=== PATIENT | male | born 1945 | race Two or more races ===

== ENCOUNTER → 2017-03-06 | Outpatient (REF) | payer MEDICARE | LOC: M SFHCCAPE 11:07 | PROVIDERS: ATTEND Physician Assistant | DX: R35.0 Frequency of micturition (principal) | CPT/HCPCS: 81001; 87086; G0463 ==

== ENCOUNTER → 2017-03-07 | Outpatient (REF) | payer MEDICARE ==
[2017-03-07 17:18] LABS: BASO # 0.1 10^3/uL (0.0-0.2); BASO % 0.6 % (0.0-1.0); EOS # 0.2 10^3/uL (0.0-0.50); IMMATURE GRANULOCYTE % 0.2 % (0-0); LYMPH # 2.1 10^3/uL (1.5-4.5); MEAN CORPUSCULAR HEMOGLOBIN 28.3 pg (27.0-33.0); MEAN CORPUSCULAR HGB CONC 31.6 g/dl (32.0-36.5); MEAN CORPUSCULAR VOLUME 89.6 fl (80.0-96.0); MONO # 0.7 10^3/uL (0.0-0.8); MONO % 8.2 % (0.0-5.0); NEUTROPHILS # 5.5 10^3/uL (1.8-7.7); PLATELET COUNT, AUTOMATED 181 10^3/uL (150-450); RED CELL DISTRIBUTION WIDTH 13.9 % (11.5-14.5); WHITE BLOOD COUNT 8.5 10^3/uL (4.0-10.0)
[2017-03-07 17:47] LABS: ALBUMIN 3.4 GM/DL (3.2-5.2); ALBUMIN/GLOBULIN RATIO 1.17 (1.00-1.93); ALKALINE PHOSPHATASE 210 U/L (45-117); ALT/SGPT 25 U/L (12-78); ANION GAP 9 MEQ/L (8-16); AST/SGOT 19 U/L (7-37); BILIRUBIN,TOTAL 0.4 MG/DL (0.2-1.0); BLOOD UREA NITROGEN 10 MG/DL (7-18); CALCIUM LEVEL 8.4 MG/DL (8.8-10.2); CARBON DIOXIDE LEVEL 28 MEQ/L (21-32); CHLORIDE LEVEL 101 MEQ/L (98-107); CHOLESTEROL LEVEL 166 MG/DL (<200); CREATININE FOR GFR 0.77 MG/DL (0.70-1.30); FREE T4 0.98 NG/DL (0.76-1.46); GLOMERULAR FILTRATION RATE > 60.0 (>42); GLUCOSE, FASTING 89 MG/DL (83-110); POTASSIUM SERUM 4.2 MEQ/L (3.5-5.1); SODIUM LEVEL 138 MEQ/L (136-145); TOTAL PROTEIN 6.3 GM/DL (6.4-8.2); TRIGLYCERIDES LEVEL 129 MG/DL (<150)
== END ==
LOC: M SFHCCAPE 07:48
PROVIDERS: ATTEND Physician Assistant
DX: I10 Essential (primary) hypertension (principal); Z12.5 Encounter for screening for malignant neoplasm of prostate; J44.9 Chronic obstructive pulmonary disease, unspecified; R35.0 Frequency of micturition
CPT/HCPCS: 36415; 80053; 80061; 83036; 84439; 84443; 85025; G0103

== ENCOUNTER → 2017-04-11 | Outpatient (CLI) | payer MEDICARE ==
[~2017-04-11] MED LIST: CARV6.25 PO; ELIQ5TAB PO; TIOT18INH INH
--- NOTE | 2017-04-11 18:35 | REP ---
Prostate transrectal ultrasound: 04/11/2017. Clinical history: Elevated PSA. Findings: Ultrasound guidance provided for Dr. Regalado of the urology division to perform transrectal ultrasound-guided prostate biopsy. The gland appears enlarged measuring 8.6 x 6.5 x 9.8 cm giving a prostate volume of 285 ml. There are lobulated margins. A large heterogeneous gland is difficult to evaluate because of its overall size. Technologist documented 15 passes with an 18-gauge needle. Please see Dr. Regalado note for that procedure. Signed by Jaylon Bellamy MD 04/11/2017 08:40 P
== END ==
LOC: M SMT PRO 09:21
PROVIDERS: ATTEND Urology
DX: C61 Malignant neoplasm of prostate (principal)
CPT/HCPCS: 55700; 76872; 76942; G0416

== ENCOUNTER → 2017-04-20 | Outpatient (CLI) | payer MEDICARE ==
[2017-04-20 19:09] LABS: ANION GAP 5 MEQ/L (8-16); BLOOD UREA NITROGEN 13 MG/DL (7-18); CALCIUM LEVEL 8.6 MG/DL (8.8-10.2); CARBON DIOXIDE LEVEL 32 MEQ/L (21-32); CHLORIDE LEVEL 103 MEQ/L (98-107); CREATININE FOR GFR 0.75 MG/DL (0.70-1.30); GLOMERULAR FILTRATION RATE > 60.0 (>42); GLUCOSE, FASTING 83 MG/DL (83-110); SODIUM LEVEL 140 MEQ/L (136-145)
== END ==
LOC: M SMT 15:27
PROVIDERS: ATTEND Urology
DX: C61 Malignant neoplasm of prostate (principal)

== ENCOUNTER 2017-04-26 16:50 | Emergency (ER) | payer MEDICARE ==
[~2017-04-26] VITALS: Ht 180.3 cm; Wt 111.8 kg
[2017-04-26 16:50] VITALS: BP 155/81
[2017-04-26] MEDS ORDERED: CARV6.25 PO (16:57)
[2017-04-26] MEDS ORDERED: TIOT18INH INH (16:58)
[2017-04-26] MEDS ORDERED: ELIQ5TAB PO (17:49)
[2017-04-26] MEDS ORDERED: APIXABAN 5 MG TAB (ELIQUIS) PO ONE (18:00)
== END 2017-04-26 18:42 | disposition home or self-care (01) ==
LOC: M ED 16:50
DX: I82.411 Acute embolism and thrombosis of right femoral vein (principal); I10 Essential (primary) hypertension

== ENCOUNTER → 2017-04-26 | Outpatient (CLI) | payer MEDICARE ==
--- NOTE | 2017-04-27 06:46 | REP ---
RIGHT LOWER EXTREMITY DUPLEX DOPPLER VENOUS ULTRASOUND: Real-time compression and duplex Doppler interrogation of the right lower extremity deep venous system is performed. There is thrombus seen in the right common femoral vein extending into the central aspect of the greater saphenous vein rendering these vessels incompletely compressible. No thrombus is seen in the right superficial femoral or popliteal veins, with normal compressibility and internal flow. There are right inguinal lymph nodes present which all demonstrate markedly fatty kaity with short axis dimensions less than 1 cm. IMPRESSION: DVT seen in the right common femoral vein. Signed by Red Deluca MD 04/27/2017 08:34 P
== END ==
LOC: M RAD 15:16
PROVIDERS: ATTEND Physician Assistant
DX: M79.89 Other specified soft tissue disorders (principal); I82.411 Acute embolism and thrombosis of right femoral vein

== ENCOUNTER → 2017-04-28 | Outpatient (CLI) | payer MEDICARE ==
[~2017-04-28] MED LIST changes: +ISOVUE-370 76% 100ML VIAL (Q9967) As Ordered ONE
--- NOTE | 2017-04-28 11:51 | REP ---
CT STUDY OF THE PELVIS WITH IV BUT WITHOUT ORAL CONTRAST: HISTORY: Prostate carcinoma. CT CONTRAST DOSE: 100 mL of intravenous Isovue-370. CT FINDINGS: There are sclerotic bony changes, consistent with skeletal metastatic disease. Abnormal areas visualized include the left proximal femur and femoral head, the left posterosuperior acetabulum, the left posterior iliac bone, and the left side of the sacrum. The bottom of each kidney is visible at the top of the imaging field of view and there appear to be parapelvic cysts. The ureters do not appear to be dilated. There is a vena cava filter in place in the inferior vena cava. The infrarenal abdominal aorta is mildly ectatic measuring 2.6 cm in AP dimension. No aneurysm is seen. There is left colonic diverticulosis. On soft tissue window settings, the prostate is enlarged, and there is heterogeneously enhancing prostate mass effect extending through the right side of the prostatic capsule over a large area extending from approximately 10-o'clock position to approximately 4-o'clock position on the circumference of the prostate on axial CT images. There is involvement of the right and probably left seminal vesicle which are enlarged with this heterogeneous enhancing material. This heterogeneous enhancing material appears to extend into the anterior wall of the rectum and certainly extends to the right pelvic sidewall where there is fairly bulky right internal and external iliac lymphadenopathy. There are also left internal iliac and left external iliac enlarged lymph nodes. On the right, this confluent pelvic sidewall adenopathy measures up to 8 cm in craniocaudal span by 4.1 cm in medial to lateral dimension by up to 9 cm in craniocaudal span. On the left, the internal iliac node focus measures 3.2 cm in greatest diameter. The external iliac lymph node measures 2.0 cm. On the right, there is evidence of obstructive venous thrombosis in the right common femoral vein. There is a diffuse edema pattern in the proximal thigh soft tissues associated with this. Scattered normal-sized periaortic lymph nodes are seen. There is an aortocaval node visible at the top of the imaging field of view which measures 9 mm in short-axis dimension. This is not definitely enlarged. This node measures 21 mm in craniocaudal span. IMPRESSION: In this patient with known prostate malignancy, there is evidence of significant local regional spread outside the prostate capsule into bilateral seminal vesicles, the anterior wall of the rectum, the right pelvic sidewall with bilateral pelvic lymphadenopathy. There is also evidence of sclerotic bony metastatic disease. Recommend radionuclide bone scan be considered. CT scanning of the abdomen and pelvis may show more proximal adenopathy. There is evidence of deep venous thrombosis involving the right lower extremity associated with the iliac adenopathy. Signed by Vahid Lagunas MD 04/28/2017 01:37 P
--- NOTE | 2017-04-28 13:40 | REP ---
WHOLE BODY RADIONUCLIDE BONE SCAN: HISTORY: Prostate carcinoma diagnosed last week. TECHNIQUE: 21.6 mCi technetium 99m MDP is injected and standard whole body bone scan imaging is acquired. FINDINGS: There is unfortunately a multifocal pattern of metastatic disease involving the axial skeleton in multiple sites. The largest of these is the proximal femur on the left which shows abnormal increased uptake from the intertrochanteric segment through the femoral head. There is another large area of increased uptake in the posterior iliac bone on the left. Smaller foci are seen in the sacrum left medial acetabulum and right ischium. There is increased uptake in the T11 vertebral body as well as in T7. Multiple rib foci of increased uptake are seen most notably the right posterior 2nd rib. There is a metastatic focus in the distal clavicle on the left and in the coracoid process on the left. There is uptake in bilateral kidneys and the urinary bladder. Arthritic uptake is seen in the knees and in the small joints of the feet bilaterally. IMPRESSION: Fairly extensive skeletal metastatic disease most notably involving the left pelvis and left proximal femur . Signed by Vahid Lagunas MD 04/28/2017 03:49 P
== END ==
LOC: M RAD 09:25
PROVIDERS: ATTEND Urology
DX: C61 Malignant neoplasm of prostate (principal); R93.7 Abnormal findings on diagnostic imaging of other parts of musculoskeletal system
CPT/HCPCS: 72193; 78306; A9503; Q9967

== ENCOUNTER → 2017-05-29 | Outpatient (CLI) | payer MEDICARE ==
[2017-05-29 19:55] LABS: PROSTATIC SPECIFIC AG MONITOR 5.42 NG/ML (< 4.0)
== END ==
LOC: M SMT 14:20
DX: C61 Malignant neoplasm of prostate (principal)
CPT/HCPCS: 84153

== ENCOUNTER → 2017-07-19 | Outpatient (CLI) | payer MEDICARE ==
[2017-07-19 18:20] LABS: PROSTATIC SPECIFIC AG MONITOR 5.18 NG/ML (< 4.0)
== END ==
LOC: M SMT 13:39
DX: C61 Malignant neoplasm of prostate (principal)
CPT/HCPCS: 84153

== ENCOUNTER → 2017-10-04 | Outpatient (REF) | payer MEDICARE ==
[2017-10-05 14:35] LABS: TESTOSTERONE 13 NG/DL (241-827)
== END ==
LOC: M LAB REF 10:47
DX: C61 Malignant neoplasm of prostate (principal); C79.51 Secondary malignant neoplasm of bone
CPT/HCPCS: 84403

== ENCOUNTER → 2017-10-19 | Outpatient (REF) | payer MEDICARE ==
[2017-10-19 18:32] LABS: APPEARANCE, URINE CLEAR (CLEAR); BACTERIA, URINE AUTO NEGATIVE (NEGATIVE); BILIRUBIN, URINE AUTO NEGATIVE (NEGATIVE); BLOOD, URINE BLOOD NEGATIVE (NEGATIVE); COLOR, URINE YELLOW (YELLOW); GLUCOSE, URINE (UA) AUTO NEGATIVE (NEGATIVE); KETONE, URINE AUTO NEGATIVE (NEGATIVE); LEUKOCYTE ESTERASE, URINE AUTO NEGATIVE (NEGATIVE); NITRITE, URINE AUTO NEGATIVE (NEGATIVE); PROTEIN, URINE AUTO NEGATIVE (NEGATIVE); RBC, URINE AUTO 0 /HPF (0-3); SPECIFIC GRAVITY URINE AUTO 1.014 (1.002-1.035); SQUAMOUS EPITHELIAL CELL UR AU 0 /HPF (0-6); UROBILINOGEN, URINE AUTO 0.2 mg/dL (0.0-2.0); WBC, URINE AUTO 0 /HPF (0-3)
== END ==
LOC: M SMT 16:53
DX: R35.0 Frequency of micturition (principal)
CPT/HCPCS: 81001

== ENCOUNTER → 2017-10-26 | Outpatient (CLI) | payer MEDICARE ==
[~2017-10-26] MED LIST changes: -CARV6.25 PO; -ELIQ5TAB PO; +ISOVUE-370 76% 100ML VIAL (Q9967) As Ordered; -ISOVUE-370 76% 100ML VIAL (Q9967) As Ordered ONE; -TIOT18INH INH
== END ==
LOC: M RAD 10:33
DX: C61 Malignant neoplasm of prostate (principal); C79.51 Secondary malignant neoplasm of bone; K57.30 Diverticulosis of large intestine without perforation or abscess without bleeding; R91.8 Other nonspecific abnormal finding of lung field; C79.89 Secondary malignant neoplasm of other specified sites
CPT/HCPCS: Q9967

== ENCOUNTER → 2017-11-14 | Outpatient (REF) | payer MEDICARE ==
[2017-11-14 17:06] LABS: ALBUMIN 3.1 GM/DL (3.2-5.2); ALKALINE PHOSPHATASE 140 U/L (45-117); ALT/SGPT 21 U/L (12-78); ANION GAP 4 MEQ/L (8-16); AST/SGOT 17 U/L (7-37); BILIRUBIN,TOTAL 0.4 MG/DL (0.2-1.0); BLOOD UREA NITROGEN 16 MG/DL (7-18); CALCIUM LEVEL 7.6 MG/DL (8.8-10.2); CARBON DIOXIDE LEVEL 30 MEQ/L (21-32); CHLORIDE LEVEL 103 MEQ/L (98-107); CHOLESTEROL LEVEL 142 MG/DL (<200); CREATININE FOR GFR 0.72 MG/DL (0.70-1.30); GLOMERULAR FILTRATION RATE > 60.0 (>42); GLUCOSE, FASTING 97 MG/DL (70-100); HDL CHOLESTEROL 50 MG/DL (>40); LDL CHOLESTEROL 65.6 MG/DL (<100); NON-HDL-C 92 MG/DL; POTASSIUM SERUM 4.1 MEQ/L (3.5-5.1); SODIUM LEVEL 137 MEQ/L (136-145); TOTAL PROTEIN 6.2 GM/DL (6.4-8.2); TRIGLYCERIDES LEVEL 132 MG/DL (<150)
[2017-11-14 17:14] LABS: ESTIMATED AVERAGE GLUCOSE 126 MG/DL (60-110)
[2017-11-14 17:38] LABS: BASO % 0.2 % (0.0-1.0); EOS # 0.1 10^3/uL (0.0-0.50); EOS % 1.7 % (0.0-3.0); HEMATOCRIT 35.6 % (42.0-52.0); HEMOGLOBIN 11.1 g/dl (13.5-17.5); IMMATURE GRANULOCYTE % 0.1 % (0-3.0); LYMPH # 1.9 10^3/uL (1.5-4.5); LYMPH % 22.7 % (24.0-44.0); MEAN CORPUSCULAR HGB CONC 31.2 g/dl (32.0-36.5); MEAN CORPUSCULAR VOLUME 89.9 fl (80.0-96.0); MONO # 0.9 10^3/uL (0.0-0.8); MONO % 10.8 % (0.0-5.0); NEUTROPHILS # 5.4 10^3/uL (1.8-7.7); NEUTROPHILS % 64.5 % (36.0-66.0); PLATELET COUNT, AUTOMATED 176 10^3/uL (150-450); RED BLOOD COUNT 3.96 10^6/uL (4.30-6.10); RED CELL DISTRIBUTION WIDTH 13.9 % (11.5-14.5); WHITE BLOOD COUNT 8.4 10^3/uL (4.0-10.0)
== END ==
LOC: M SFHCCAPE 09:36
DX: C61 Malignant neoplasm of prostate (principal); I10 Essential (primary) hypertension; R73.01 Impaired fasting glucose
CPT/HCPCS: 80053

== ENCOUNTER → 2017-11-29 | Outpatient (CLI) | payer MEDICARE | LOC: M RAD 13:14 | DX: M79.89 Other specified soft tissue disorders (principal); Z86.718 Personal history of other venous thrombosis and embolism; I82.421 Acute embolism and thrombosis of right iliac vein; I82.811 Embolism and thrombosis of superficial veins of right lower extremity | CPT/HCPCS: 93971 ==

== ENCOUNTER → 2017-12-27 | Outpatient (REF) | payer MEDICARE | LOC: M LAB REF 17:17 | DX: C79.51 Secondary malignant neoplasm of bone (principal); C61 Malignant neoplasm of prostate | CPT/HCPCS: 84153 ==

== ENCOUNTER → 2018-02-21 | Outpatient (CLI) | payer MEDICARE | LOC: M RAD 17:13 | DX: R93.89 Abnormal findings on diagnostic imaging of other specified body structures (principal); C61 Malignant neoplasm of prostate | CPT/HCPCS: 73521 ==

== ENCOUNTER → 2018-02-22 | Outpatient (REF) | payer MEDICARE | LOC: M LAB REF 08:44 | DX: C61 Malignant neoplasm of prostate (principal) | CPT/HCPCS: 88300 ==

== ENCOUNTER → 2018-03-01 | Outpatient (CLI) | payer MEDICARE | LOC: M ONCR 12:58 | DX: C61 Malignant neoplasm of prostate (principal); C79.51 Secondary malignant neoplasm of bone ==

== ENCOUNTER → 2018-03-06 | Outpatient (CLI) | payer MEDICARE | LOC: M PLARAD 09:37 | DX: C61 Malignant neoplasm of prostate (principal); C79.51 Secondary malignant neoplasm of bone; C77.1 Secondary and unspecified malignant neoplasm of intrathoracic lymph nodes | CPT/HCPCS: 78815 ==

== ENCOUNTER 2018-03-12 10:22 | Outpatient (RCR) | payer MEDICARE | END 2018-04-06 | LOC: M ONCR 10:22 | DX: C79.51 Secondary malignant neoplasm of bone (principal); C61 Malignant neoplasm of prostate | CPT/HCPCS: 77307 ==

== ENCOUNTER 2018-04-10 08:37 | Day surgery (SDC) | payer MEDICARE ==
[~2018-04-10] VITALS: Ht 177.8 cm; Wt 106.1 kg
[~2018-04-10 08:37] MED LIST changes: +ADV250INH INH; +CARV6.25 PO; +CENTCHW4 PO; +DEXA4TA PO; +ELIQ5TAB PO; -ISOVUE-370 76% 100ML VIAL (Q9967) As Ordered; +LOSA50TA5 PO; +TIOT18INH INH
[2018-04-10] MEDS ORDERED: LR 1,000 ML IV ONE (08:45)
[2018-04-10] MEDS ORDERED: MUPIROCIN 2% OINT 22 GM TUBE TOP ONE (09:00)
[2018-04-10 09:16] LABS: INR 0.95; PROTHROMBIN TIME 12.7 SECONDS (12.1-14.4)
[2018-04-10 09:17] LABS: PARTIAL THROMBOPLASTIN TIME 26.3 SECONDS (25.4-37.6)
[2018-04-10] MEDS ORDERED: BUPIVACAINE LIPOSOME/PF 1.3% 20ML VIAL (13.3MG/ML)(EXPAREL)(C9290 PER1MG) As Ordered ONE (09:40)
[2018-04-10] MEDS ORDERED: HEPARIN SOD (PORCINE) 5000 UNITS/ML VIAL As Ordered ONE (09:42)
[2018-04-10] MEDS ORDERED: LIDOCAINE 1% SDV INJ 30 ML VIAL As Ordered ONE (09:42)
--- NOTE | 2018-04-10 09:56 | REP ---
Chest x-ray: Two views. History: Preop. Comparison PET-CT study March 06, 2018. CT findings: The lungs are symmetrically aerated. There is minimal plate-like atelectasis in the bases bilaterally. Mild cardiomegaly is observed. The aorta is calcific and tortuous. There is some nodular pleural thickening in the right apex which appears to be associated with sclerotic metastatic change involving the right second rib. There is a partial wedge deformity and one of the lower thoracic vertebrae. There is abnormal sclerotic density in the distal clavicle on the left. Impression: Evidence of sclerotic bony metastatic disease. Borderline heart size. Bibasilar plate-like atelectasis. Electronically Signed by Vahid Lagunas MD 04/10/2018 09:48 A
[2018-04-10] MEDS ORDERED: PROPOFOL 200 MG/20 ML VIAL As Ordered ONE (10:26)
[2018-04-10] MEDS ORDERED: MIDAZOLAM INJ 2 MG/2 ML VIAL (J2250) As Ordered ONE (10:26)
[2018-04-10] MEDS ORDERED: fentaNYL 100 MCG/2 ML INJECTION (J3010) As Ordered ONE (10:26)
--- NOTE | 2018-04-10 11:36 | REP ---
Partial chest x-ray: Two views. History: Vuwlkb-O-Vuxt insertion. 25 seconds of fluoroscopy time is reported. Findings: A sequence of two last image hold fluoroscopic spot radiographs of the chest document Bkrjnv-W-Zdcr catheter placement. Electronically Signed by Vahid Lagunas MD 04/10/2018 04:00 P
--- NOTE | 2018-04-10 11:36 | REP ---
Portable chest x-ray: Single view. History: Uqmkht-Q-Qdmq insertion. Comparison study is from earlier today. Findings: A left subclavian Mhbasp-I-Owlp catheter is seen with its tip in the expected location of the superior vena cava. Previously noted bony changes are again noted. There is no evidence of pneumothorax or hydrothorax. Impression: Left subclavian Wxmouj-N-Ssal catheter in what appears to be good position. No complication identified. Electronically Signed by Vahid Lagunas MD 04/10/2018 11:28 A
[2018-04-10] MEDS ORDERED: PERCOCET 5MG/325MG TAB PO PRN (11:45)
[2018-04-10] MEDS ORDERED: fentaNYL 100 MCG/2 ML INJECTION (J3010) IV PRN (11:45)
[2018-04-10] MEDS ORDERED: LR 1,000 ML IV SCH (11:45)
[2018-04-10] MEDS ORDERED: ONDANSETRON 4MG/2ML VIAL (J2405) IV PRN (11:45)
[2018-04-10 11:50] VITALS: BP 124/60
--- NOTE | 2018-04-10 18:57 | ECGEPIP ---
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
--- NOTE | 2018-04-11 09:23 | RO ---
DATE OF PROCEDURE: 04/10/2018 PREPROCEDURE DIAGNOSIS: Prostatic carcinoma in need of vascular access and chemotherapy. POSTPROCEDURE DIAGNOSIS: Prostatic carcinoma in need of vascular access and chemotherapy. PROCEDURE: Insertion of left subclavian PowerPort with fluoroscopic control. SURGEON: Dr. Cheikh De Luna ADJUNCT MATHEMATICS INSTRUCTOR: ANESTHESIA: FINDINGS: At the end of the procedure all contours were smooth and the catheter was placed at the junction of the superior vena cava (SVC) in the right atrium. DESCRIPTION OF PROCEDURE: Under satisfactory monitored anesthesia care (MAC) anesthesia, the patient was prepped and draped in the usual sterile fashion. Left intraclavicular fossa was infiltrated with 1% lidocaine. The subclavian vein was found on the first pass and the wire was passed without difficulty. It was positioned with fluoroscopic control. Approximately 2 cm below the wire insertion skin and subcutaneous tissue was infiltrated with Exparel. An incision was made to accommodate the port and subcutaneous pocket created by use of electrocautery and blunt dissection. Wire tract was then dilated in size, dilated, and a catheter placed low numbers down into the right atrium. A tunnel was then created between the wire insertion site and the port site. It was pulled through and positioned at the junction of the right atrium SVC with fluoroscopic control. Catheter was cut to appropriate size. Collar was placed and the Edbpkw-T-Ryoj connected to the catheter. Mqmkal-S-Nask was then secured to the chest wall with two #2-0 silk sutures. Port was flushed with heparinized saline and aspirated and flushed well. He was then flushed with a final flush of 100 u/mL of heparin. After obtaining final pictures, all contours were smooth and the subcutaneous tissue was closed with running #3-0 Vicryl suture and the skin closed with running #4-0 Monocryl subcuticular suture. The patient tolerated the procedure well and left the operating room in satisfactory condition.
[2018-04-11] MEDS ORDERED: ONDA8TAB7 PO (13:59)
[2018-04-25] MEDS ORDERED: DEXA4TA PO (14:09)
[2018-05-09] MEDS ORDERED: DEXA4TA PO (11:19)
== END 2018-04-10 11:55 | disposition home or self-care (01) ==
LOC: M SDC 08:37
PROVIDERS: ATTEND Thoracic Surgery (Cardiothoracic Vascular Surgery)
DX: C61 Malignant neoplasm of prostate (principal); Z45.2 Encounter for adjustment and management of vascular access device; I10 Essential (primary) hypertension; Z92.3 Personal history of irradiation; Z87.891 Personal history of nicotine dependence; Z79.01 Long term (current) use of anticoagulants; Z79.899 Other long term (current) drug therapy; J44.9 Chronic obstructive pulmonary disease, unspecified
CPT/HCPCS: 36415; 36561; 71045; 71046; 76000; 85610; 85730; 93005; C1788; C9290; J0690; J2250; J3010

== ENCOUNTER → 2018-04-16 | Outpatient (CLI) | payer MEDICARE | LOC: M SMT 11:01 | DX: Z48.813 Encounter for surgical aftercare following surgery on the respiratory system (principal); Z97.8 Presence of other specified devices | CPT/HCPCS: 71046 ==

== ENCOUNTER → 2018-05-07 | Outpatient (REF) | payer MEDICARE ==
[~2018-05-07] MED LIST changes: +ONDA8TAB7 PO
[2018-05-07 16:58] LABS: ALBUMIN 2.8 GM/DL (3.2-5.2); ALT/SGPT 15 U/L (12-78); BILIRUBIN,TOTAL 0.3 MG/DL (0.2-1.0); BLOOD UREA NITROGEN 10 MG/DL (7-18); CALCIUM LEVEL 7.9 MG/DL (8.8-10.2); CARBON DIOXIDE LEVEL 30 MEQ/L (21-32); CHLORIDE LEVEL 105 MEQ/L (98-107); CHOLESTEROL LEVEL 199 MG/DL (<200); CHOLESTEROL RISK RATIO 3.209 (<5); CREATININE FOR GFR 0.61 MG/DL (0.70-1.30); GLOMERULAR FILTRATION RATE > 60.0 (>42); GLUCOSE, FASTING 91 MG/DL (70-100); HDL CHOLESTEROL 62 MG/DL (>40); LDL CHOLESTEROL 108 MG/DL (<100); NON-HDL-C 137 MG/DL; POTASSIUM SERUM 4.2 MEQ/L (3.5-5.1); SODIUM LEVEL 142 MEQ/L (136-145); TOTAL PROTEIN 5.4 GM/DL (6.4-8.2); TRIGLYCERIDES LEVEL 147 MG/DL (<150)
[2018-05-07 17:14] LABS: BASO % 0.4 % (0.0-1.0); EOS % 0.6 % (0.0-3.0); HEMATOCRIT 33.6 % (42.0-52.0); HEMOGLOBIN 10.5 g/dl (13.5-17.5); LYMPH # 0.8 10^3/uL (1.5-4.5); MEAN CORPUSCULAR HEMOGLOBIN 28.4 pg (27.0-33.0); MEAN CORPUSCULAR HGB CONC 31.3 g/dl (32.0-36.5); MEAN CORPUSCULAR VOLUME 90.8 fl (80.0-96.0); MONO # 0.6 10^3/uL (0.0-0.8); MONO % 11.7 % (0.0-5.0); NEUTROPHILS # 3.6 10^3/uL (1.8-7.7); NEUTROPHILS % 70.3 % (36.0-66.0); PLATELET COUNT, AUTOMATED 185 10^3/uL (150-450); WHITE BLOOD COUNT 5.1 10^3/uL (4.0-10.0)
[2018-05-07 20:04] LABS: HEMOGLOBIN A1c 6.3 %
== END ==
LOC: M SFHCCAPE 08:38
PROVIDERS: ATTEND Physician Assistant
DX: I10 Essential (primary) hypertension (principal); R73.01 Impaired fasting glucose

== ENCOUNTER → 2018-05-11 | Outpatient (CLI) | payer MEDICARE ==
--- NOTE | 2018-05-12 09:25 | REP ---
RIGHT LOWER EXTREMITY DUPLEX VEINS: HISTORY: Swelling. COMPARISON: 04/26/2017 There are no filling defects in the deep venous system. The deep venous system is patent. Intimal scarring is present in the common femoral vein secondary to previous deep venous thrombosis . An 8 mm lymph node is present in the right groin. Edema is present in the soft tissue of the distal thigh and posterior knee. IMPRESSION: There is no deep venous thrombosis. Electronically Signed by Teja Sawyer MD 05/12/2018 09:28 A
== END ==
LOC: M RAD 17:02
PROVIDERS: ATTEND Internal Medicine Hematology & Oncology
DX: R22.41 Localized swelling, mass and lump, right lower limb (principal)

== ENCOUNTER → 2018-06-29 | Outpatient (CLI) | payer MEDICARE ==
[~2018-06-29] MED LIST changes: +GASTROGRAFIN SOLUTION 30ML (Q9963) As Ordered ONE; +ISOVUE-370 76% 100ML VIAL (Q9967) As Ordered ONE; +K-TA10TA PO; +KLOR20TA42 PO
--- NOTE | 2018-06-29 14:41 | REP ---
A CT of the chest with IV contrast: The patient has known prostate carcinoma with metastases. There are no comparison chest CT studies. No lung masses or nodules are identified or pleural effusions. There is discoid atelectasis in the lower lobes bilaterally. There are enlarged nodes at the thoracic inlet on the left and anterior mediastinum on the left. There is an enlarged node in the posterior mediastinum adjacent to the descending aorta medially at the level of the oswaldo. There are blastic metastases posteriorly in the right first and second rib, posteriorly in the left second rib and left third rib anteriorly in the left seventh rib. There are blastic metastases in the 4th and 8th thoracic vertebral bodies and in the 12th thoracic vertebral body. The thoracic aorta is unremarkable. Cardiac size is normal. Impression: Thoracic inlet and mediastinal adenopathy as described. Multiple full skeletal metastases as described. No lung masses or nodules are identified. There is bilateral lower lobe discoid atelectasis. Electronically Signed by Red Oconnor MD 06/29/2018 02:32 P
--- NOTE | 2018-06-29 16:00 | REP ---
CT of the abdomen and pelvis with IV and bowel contrast: Comparison is 10/26/2017. The patient is a history of prostate carcinoma with metastases. There is bulky periaortic retroperitoneal adenopathy has significantly increased. There is an inferior vena cava filter as previously. The adenopathy extends into the right iliac and femoral areas along the right pelvic sidewall as previously. The adenopathy in the pelvis is a similar to our slightly decreased from the prior study. There are blastic skeletal metastases involving the left femoral head and posterior acetabular strut and left ischium, similar to the prior study. There is a focus in the posterior strut of the right acetabulum, slightly larger. There blastic metastases throughout the sacrum. These have increased. There blastic metastases posteriorly in the left iliac wing that has progressed. There blastic metastases anteriorly in the right iliac wing that have progressed. There is a blastic metastasis in the T11 vertebral body, unchanged. There is pneumobilia as previously. The hepatic parenchyma is homogeneous. The pancreas, spleen, adrenals, kidneys and abdominal aorta are unremarkable. The bowel and mesentery are unremarkable. Impression: Bulky retroperitoneal adenopathy has increased. Right pelvic sidewall adenopathy is similar or slightly decreased. Multiple skeletal metastases and in general increased. Electronically Signed by Red Oconnor MD 06/29/2018 03:52 P
== END ==
LOC: M RAD 08:49
PROVIDERS: ATTEND Internal Medicine Medical Oncology
DX: C61 Malignant neoplasm of prostate (principal)
CPT/HCPCS: 71260; 74177; Q9963; Q9967

== ENCOUNTER 2018-07-04 13:30 | Outpatient (RCR) | payer MEDICARE ==
[~2018-07-04 13:30] MED LIST changes: -GASTROGRAFIN SOLUTION 30ML (Q9963) As Ordered ONE; -ISOVUE-370 76% 100ML VIAL (Q9967) As Ordered ONE
[2018-07-10] MEDS ORDERED: CALCTAB44 PO (10:49)
[2018-07-10] MEDS ORDERED: DEXA4TA PO (11:36)
[2018-07-12] MEDS ORDERED: DEXA4TA PO (08:25)
== END 2018-07-05 ==
LOC: M PT 13:30
PROVIDERS: ATTEND Internal Medicine Hematology & Oncology
DX: I89.0 Lymphedema, not elsewhere classified (principal)

== ENCOUNTER 2018-07-16 08:30 | Outpatient (RCR) | payer MEDICARE ==
[~2018-07-16 08:30] MED LIST changes: +CALCTAB44 PO
[2018-07-24] MEDS ORDERED: K-TA10TA PO (13:01)
== END 2018-08-05 ==
LOC: M PT 08:30
PROVIDERS: ATTEND Internal Medicine Hematology & Oncology
DX: I89.0 Lymphedema, not elsewhere classified (principal)

== ENCOUNTER → 2018-08-22 | Outpatient (REF) | payer MEDICARE ==
[~2018-08-22] MED LIST changes: +CALC1TAB82 PO; -CALCTAB44 PO; +VALT1TAB PO
== END ==
LOC: CANPREREF → M SFHCCAPE 08:51
PROVIDERS: ATTEND Physician Assistant
DX: I10 Essential (primary) hypertension (principal); R73.01 Impaired fasting glucose; Z53.9 Procedure and treatment not carried out, unspecified reason

== ENCOUNTER → 2018-09-04 | Outpatient (REF) | payer MEDICARE ==
[~2018-09-04] MED LIST changes: +VALA500T5 PO
[2018-09-04 11:15] LABS: HEMOGLOBIN A1c 5.3 %
[2018-09-04 11:26] LABS: THYROID STIMULATING HORMONE 1.84 uIU/ML (0.358-3.740)
== END ==
LOC: M LAB REF 10:23
PROVIDERS: ATTEND Physician Assistant
DX: I10 Essential (primary) hypertension (principal); R73.01 Impaired fasting glucose

== ENCOUNTER 2018-10-09 14:53 | Inpatient (IN) | payer MEDICARE ==
[~2018-10-09] VITALS: Ht 177.8 cm; Wt 102.3 kg
[~2018-10-09 14:53] MED LIST changes: +HYDR-4517 PO; +TRAM50TA2 PO; +VICO5TAB17 PO
[2018-10-09] MEDS ORDERED: TIOT18INH INH (16:03)
[2018-10-09] MEDS ORDERED: NORC1TAB7 PO (16:03)
[2018-10-09] MEDS ORDERED: ELIQ5TAB PO (16:03)
[2018-10-09] MEDS ORDERED: POTA10TA14 PO (16:03)
--- NOTE | 2018-10-09 17:10 | REP ---
CT Head without contrast HISTORY: Fall COMPARISON: None Areas of decreased attenuation are present in the periventricular white matter. This represents small-vessel ischemic disease. There is no intraparenchymal hemorrhage, acute infarct, mass or midline shift. The ventricular system and cortical sulci are dilated consistent with minimal volume loss. There is no extra cerebral collection. There is no fracture. 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 Mucosal thickening is present in the ethmoid and maxillary sinuses. IMPRESSION: 1. Small vessel ischemic disease. 2. Minimal volume loss. Electronically Signed by Teja Sawyer MD 10/09/2018 05:02 P
[2018-10-09 17:28] LABS: BLOOD UREA NITROGEN 18 MG/DL (7-18); CALCIUM LEVEL 6.7 MG/DL (8.8-10.2); CARBON DIOXIDE LEVEL 25 MEQ/L (21-32); CHLORIDE LEVEL 107 MEQ/L (98-107); CREATININE FOR GFR 0.93 MG/DL (0.70-1.30); GLOMERULAR FILTRATION RATE > 60.0 (>42); GLUCOSE, FASTING 88 MG/DL (70-100); MAGNESIUM LEVEL 1.6 MG/DL (1.8-2.4); POTASSIUM SERUM 2.9 MEQ/L (3.5-5.1); SODIUM LEVEL 143 MEQ/L (136-145)
[2018-10-09] MEDS ORDERED: NS 1,000 ML IV ONE ×2 (17:30→19:00)
[2018-10-09] MEDS ORDERED: KCL 10MEQ/100ML SWI (KRUN) 10 MEQ in APPROPRIATE DILUENT 1 EA IV ONE (17:30)
[2018-10-09] MEDS ORDERED: NORCO, ANEXSIA 5/325MG TABLET (HYDROcodone/ACETAMINOPHEN) PO PRN (18:45)
[2018-10-09] MEDS ORDERED: MAG SULF 1GM/100ML (MAG RUN) 1 GM in APPROPRIATE DILUENT 1 EA IV ONE (19:00)
[2018-10-09] MEDS ORDERED: LOPERAMIDE 2 MG CAP PO PRN (19:00)
[2018-10-09] MEDS ORDERED: CIPROFLOXACIN 400 MG in APPROPRIATE DILUENT 1 EA IV ONE ×2 (19:15→22:00)
--- NOTE | 2018-10-09 19:21 | HPEPDOC ---
General Date of Admission 10/09/18 Date of Service: Oct 09, 2018 Chief Complaint The patient is a 73-year-old male admitted with a reason for visit of Diarrhea. Source: Patient, Family, RN/MD, Old records Exam Limitations: No limitations Severity: Moderate History of Present Illness 73 year old male with PMH of Metastatic prostate ca diagnosed in 2018 on chemotherapy, HYPERTENSION, COPD, DVT on eliquis, shingles, last chemotherapy was on 10/02/18 and last neupogen then presented to the ED with 5 days of severe watery diarrhea. He had gone to the oncology clinic today for follow up and blood tests and was found to be hypotensive and hypokalemic , anemic and was sent to the ED. He complained of severe intractable diarrhea watery in nature for the past 5 days, no blood in it. He did not have any associated abdominal pain or cramps. no vomiting . he was nauseaous. he has been unable to eat or drink much for the past week. he did continue to take all his meds including his blood pressure meds which he took this morning. This am he was very light headed and dizzy and had difficulty in walking. Denied any fever or chills. He did have a fall about 2 weeks ago and had hit his head. So he had a CT head done in the ED which was negative for any acute events. He has been taking about 6 imodium pills daily but still continued to have diarrhea. He says he did have diarrhea after every chemo treatment but that would get better in 2 to 3 days . This cycle was his last treatment. His last diarrhea episode was at 5 am today. He was admitted for diarrhea, dehydration, hypotension, electrolyte imbalance, anemia. Home Medications Scheduled Apixaban (Eliquis) 5 Mg Tablet, 5 MG PO BID, (Reported) Carvedilol (Carvedilol) 6.25 Mg Tab, 6.25 MG PO BID, (Reported) Losartan/Hydrochlorothiazide (Losartan-Hctz 50-12.5 mg Tab) 1 Tab Tab, 1 TAB PO DAILY Potassium Chloride (Potassium Chloride) 10 Meq Tablet.er, 10 MEQ PO DAILY, (Reported) Salmeterol/Fluticasone (Advair 250-50 Diskus) 14 Puff/Inhaler Aerp, 1 PUFF INH BID Tiotropium [place] Monohydrate (Spiriva) 18 Mcg Cap.w.dev, 1 CAP INH DAILY, (Reported) Scheduled PRN Hydrocodone/Acetaminophen (Jolon 5-325 Tablet) 1 Each Tablet, 1 TAB PO TID PRN for PAIN, (Reported) Allergies Coded Allergies: No Known Allergies (Unverified , 04/09/18) Past Medical History Medical History Metastatic prostate ca diagnosed in 2018 on chemotherapy, HYPERTENSION, COPD, DVT on eliquis, lymphedema of the right leg, shingles in august 2018 Surgical History GALL BLADDER REMOVED 2006, TRUS BX 04/11/17 Family History Significant Family History: Cancer (brother 1 with lung cancer, brother 2 with esophageal cancer both .), Hypertension (Father, now ) Mother diseased, son and daughter healthy Social History * Smoker: quit greater than 1 year Alcohol: Denies Drugs: denies A-FIB/CHADSVASC A-FIB History Current/History of A-Fib/PAF?: No Current PO Anticoag Therapy: Yes Review of Systems Constitutional: Reports: Weakness, Fatigue; Denies: Chills, Fever, Night Sweats Eyes: Denies: Pain, Vision change ENT: Denies: Head Aches, Ear Pain, Dysphagia Skin: Denies: Rash, Lesions, Breakdown Pulmonary: Denies: Dyspnea, Cough Cardiovascular: Reports: Lt Headedness; Denies: Chest Pain, Palpitations, Orthopnea, Paroxysmal Noc. Dyspnea Gastrointestinal: Reports: Nausea, Diarrhea; Denies: Vomiting, Abdominal Pain, Melena, Hematochezia Genitourinary: Denies: Dysuria, Frequency, Incontinence, Retention Hematologic: Denies: Bruising, Bleeding Excessively Musculoskeletal: Denies: Neck Pain, Back Pain, Joint Pain, Muscle Pain, Spasms Neurological: Reports: Weakness Psych: Reports: Mood Normal; Denies: Depression, Memory Issues Physical Examination General Exam: Positive: Alert, Cooperative, No Acute Distress Eye Exam: Positive: Conjunctiva & lids normal, EOMI; Negative: Sclera icteric ENT Exam: Positive: Atraumatic, Pharynx Normal, Other ENT (mucous membranes dry) Neck Exam: Positive: Supple Chest Exam: Positive: Clear to auscultation, Normal air movement Heart Exam: Positive: Tachycardic, Regular Rhythm, Normal S1, Normal S2; Negative: Murmurs, Rubs Telemetry: Positive: No significant arrhythmia Abdomen Exam: Positive: Normal bowel sounds, BS Hyperactive, Soft; Negative: Tenderness, Hepatospenomegaly Extremity Exam: Positive: Normal pulses; Negative: Clubbing, Cyanosis, Edema Skin Exam: Negative: Breakdown, Lesion Vital Signs Vital Signs Date Time Temp Pulse Resp B/P (MAP) Pulse Ox O2 Delivery O2 Flow Rate FiO2 10/09/18 17:15 75 20 89/42 (58) 90 Room Air 10/09/18 15:06 96.1 Laboratory Data Labs 24H Laboratory Tests 2 10/09/18 16:33: Anion Gap 11, Glomerular Filtration Rate > 60.0, Blood Urea Nitrogen 18, Creatinine 0.93, Sodium Level 143, Potassium Level 2.9*L, Chloride Level 107, Carbon Dioxide Level 25, Calcium Level 6.7L, Magnesium Level 1.6L CBC/BMP Laboratory Tests 10/09/18 16:33 Calcium Level 6.7 L Microbiology Microbiology 10/09/18 Blood Culture, Received Pending Assessment/Plan 73 year old male with PMH of Metastatic Prostate Ca diagnosed in 2018 on chemotherapy, HYPERTENSION, COPD, DVT on eliquis last chemotherapy was on 09/25/18 and last neupogen then presented to the ED with 4 days of severe watery diarrhea. He had gone to the oncology clinic today and was found to be hypotensive, hypokalemic, anemic and was sent to the ED. Diarrhea and dehydration unsure whether chemotherapy related or infective. will get GI panel. will continue IVF. Will give cipro and flagyl. Hypertension Due to hypovolemia on the back ground of antihypertensive medications. due to severe diarrhea continue with IVF. Hold all antihypertensives. Electrolyte imbalance will replace potassium and magnesium will check ionized calcium. Anemia worse than baseline chemotherapy related. will give PRBC x 2 Leucocytosis could be reactive vs infective patient did get neupogen and steroids with chemotherapy will send procalcitonin level will give cipro and flagyl. COPD continue advair and spiriva H/O DVT continue eliquis Prostate cancer with diffuse bony mets follow up with oncology. Plan / VTE VTE Prophylaxis Ordered?: Yes CASIMIRO DIAZ MD Oct 09, 2018 17:54
[2018-10-09] MEDS ORDERED: NS 1,000 ML IV SCH (20:00)
[2018-10-09 20:45] VITALS: BP 102/50
[2018-10-09] MEDS: ADVAIR HFA 115/21MCG INHALER INH SCH (21:51)
[2018-10-09] MEDS ORDERED: metroNIDAZOLE 500 MG in APPROPRIATE DILUENT 1 EA IV ONE (23:00)
[2018-10-09] MEDS: APIXABAN 5 MG TAB (ELIQUIS) PO SCH (23:49)
[2018-10-09] MEDS: KCL 10MEQ/100ML SWI (KRUN) 10 MEQ in APPROPRIATE DILUENT 1 EA IV SCH (23:57)
[2018-10-10] VITALS: BP 110/50
[2018-10-10] MEDS: KCL 10MEQ/100ML SWI (KRUN) 10 MEQ in APPROPRIATE DILUENT 1 EA IV SCH ×5 (01:31→10:03)
[2018-10-10 06:05] LABS: HEMOGLOBIN 8.4 g/dl (13.5-17.5); MEAN CORPUSCULAR HEMOGLOBIN 30.7 pg (27.0-33.0); MEAN CORPUSCULAR HGB CONC 32.3 g/dl (32.0-36.5); MEAN CORPUSCULAR VOLUME 94.9 fl (80.0-96.0); PLATELET COUNT, AUTOMATED 100 10^3/uL (150-450); RED BLOOD COUNT 2.74 10^6/uL (4.30-6.10); WHITE BLOOD COUNT 24.5 10^3/uL (4.0-10.0)
[2018-10-10 06:37] LABS: ALBUMIN 1.9 GM/DL (3.2-5.2); ALT/SGPT 14 U/L (12-78); BILIRUBIN,TOTAL 0.5 MG/DL (0.2-1.0); BLOOD UREA NITROGEN 15 MG/DL (7-18); CALCIUM LEVEL 7.1 MG/DL (8.8-10.2); CARBON DIOXIDE LEVEL 23 MEQ/L (21-32); CHLORIDE LEVEL 108 MEQ/L (98-107); CREATININE FOR GFR 0.81 MG/DL (0.70-1.30); GLOMERULAR FILTRATION RATE > 60.0 (>42); GLUCOSE, FASTING 76 MG/DL (70-100); MAGNESIUM LEVEL 1.3 MG/DL (1.8-2.4); POTASSIUM SERUM 2.8 MEQ/L (3.5-5.1); SODIUM LEVEL 142 MEQ/L (136-145); TOTAL PROTEIN 3.7 GM/DL (6.4-8.2)
[2018-10-10 08:00] VITALS: BP 108/55
[2018-10-10] MEDS: TIOTROPIUM INHALER/CAPSULE (SPIRIVA) INH SCH (08:00)
[2018-10-10] MEDS ORDERED: MAG SULF 1GM/100ML (MAG RUN) 1 GM in APPROPRIATE DILUENT 1 EA IV ONE ×2 (08:00→11:00)
--- NOTE | 2018-10-10 08:12 | IPNPDOC ---
Subjective Date Seen The patient was seen on 10/10/18. Subjective Chief Complaint/HPI Patient lying in bed as I entered the room. He reports to be feeling about the same. He has continued diarrhea, however, no abdominal pain, cramping, nausea or vomiting Constitutional: Denies: Chills, Fever Pulmonary: Denies: Dyspnea, Cough Cardiovascular: Denies: Chest Pain, Palpitations, Orthopnea Gastrointestinal: Reports: Diarrhea; Denies: Nausea, Vomiting, Abdominal Pain, Melena, Hematochezia Genitourinary: Denies: Dysuria Psych: Reports: Mood Normal Objective Physical Examination General Exam: Positive: Alert, Cooperative, No Acute Distress Eye Exam: Positive: Conjunctiva & lids normal, EOMI; Negative: Sclera icteric ENT Exam: Positive: Atraumatic, Pharynx Normal, Other ENT (mucous membranes dry) Neck Exam: Positive: Supple Chest Exam: Positive: Clear to auscultation, Normal air movement Heart Exam: Positive: Tachycardic, Regular Rhythm, Normal S1, Normal S2; Negative: Murmurs, Rubs Telemetry: Positive: No significant arrhythmia Abdomen Exam: Positive: Normal bowel sounds, BS Hyperactive, Soft; Negative: Tenderness, Hepatospenomegaly Extremity Exam: Positive: Normal pulses; Negative: Clubbing, Cyanosis, Edema Skin Exam: Negative: Breakdown, Lesion Psych Exam: Positive: Mental status NL, Memory Intact Assessment /Plan Problems (1) Diarrhea Status: Acute Problem Text: He has had diarrhea after each of his chemotherapy treatments. He reports that it typically lasts about 5 days. He is now about 9 days out from his last chemotherapy which makes this episode unusual. GI panel pending. Etiology infectious vs chemo related. Procalcitonin pending. Patient is being covered with Cipro and Flagyl . WBC 24.5, recently received Neupogen (2) Malignant neoplasm of prostate Status: Chronic Problem Text: Last chemotherapy was on 10/02/18. He has reportedly had at least 5 days of diarrhea after each of his chemotherapy regimens. He follows with oncology and urology outpatient (3) Hypotension Status: Acute Response to Treatment: Stable Problem Text: Pressures stable this morning, 120/50. Losartan/HCTZ and Carvidilol on hold (4) Hypokalemia Status: Acute Problem Text: K+ 2.8 this morning. K+ runs x 3 administered this morning. We will repeat K+ level 12 am (renal panel was ordered). (5) Deep vein thrombosis (DVT) of femoral vein of right lower extremity Status: Acute Response to Treatment: Stable Problem Text: Patient will remain on his Eliquis (6) COPD (chronic obstructive pulmonary disease) Status: Chronic Response to Treatment: Stable Problem Text: Remains on his home inhalers Plan/VTE VTE Prophylaxis Ordered?: Yes (Eliquis ) Plan Family Medicine Attending Note: I saw and examined Mr. Walters, discussed with Jose Coley DNP. Agree with her note as documented. His GI panel returned negative. Both pro calcitonin levels were low. I do not think this is dietary of infectious origin and have stopped his antibiotics. Continue the loperamide. We'll continue to hydrate the patient and replete his electrolytes. 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, 24H, Fishbone Vital Signs/I&O Vital Signs Date Time Temp Pulse Resp B/P (MAP) Pulse Ox O2 Delivery O2 Flow Rate FiO2 10/09/18 20:45 97.5 76 18 102/50 (67) 91 10/09/18 20:15 Room Air I&O- Last 24 Hours up to 6 AM 10/10/18 06:00 Intake Total 1100 ml Output Total 0 ml Balance 1100 ml Laboratory Data 24H LABS Laboratory Tests 2 10/09/18 16:33: Anion Gap 11, Glomerular Filtration Rate > 60.0, Blood Urea Nitrogen 18, Creatinine 0.93, Sodium Level 143, Potassium Level 2.9*L, Chloride Level 107, Carbon Dioxide Level 25, Calcium Level 6.7L, Magnesium Level 1.6L 10/10/18 05:24: Anion Gap 11, Glomerular Filtration Rate > 60.0, Blood Urea Nitrogen 15, Creatinine 0.81, Sodium Level 142, Potassium Level 2.8*L, Chloride Level 108H, Carbon Dioxide Level 23, Calcium Level 7.1L, Magnesium Level 1.3L, Nucleated Red Blood Cells % (auto) 0.5H, Aspartate Amino Transf (AST/SGOT) 32, Alanine Aminotransferase (ALT/SGPT) 14, Alkaline Phosphatase 169H, Total Bilirubin 0.5, Total Protein 3.7L, Albumin 1.9L, Whole Blood Ionized Calcium 4.1L, Albumin/Globulin Ratio 1.06 CBC/BMP Laboratory Tests 10/09/18 16:33 Calcium Level 6.7 L 10/10/18 05:24 Calcium Level 7.1 L, Red Blood Count 2.74 L, Mean Corpuscular Volume 94.9, Mean Corpuscular Hemoglobin 30.7, Mean Corpuscular Hemoglobin Concent 32.3, Red Cell Distribution Width 16.5 H, Aspartate Amino Transf (AST/SGOT) 32, Alanine Aminotransferase (ALT/SGPT) 14, Alkaline Phosphatase 169 H, Total Bilirubin 0.5, Total Protein 3.7 L, Albumin 1.9 L Microbiology Microbiology 10/09/18 Blood Culture, Received Pending 10/09/18 Blood Culture, Received Pending JOSE COLEY Oct 10, 2018 08:12 Joni Fraser MD Oct 10, 2018 22:40
[2018-10-10] MEDS: APIXABAN 5 MG TAB (ELIQUIS) PO SCH ×2 (08:45→20:26)
[2018-10-10] MEDS: ADVAIR HFA 115/21MCG INHALER INH SCH ×2 (09:00→19:43)
[2018-10-10] MEDS ORDERED: KCL 10MEQ/100ML SWI (KRUN) 10 MEQ in APPROPRIATE DILUENT 1 EA IV SCH (11:00)
[2018-10-10 12:00] VITALS: BP 115/58
[2018-10-10] MEDS: metroNIDAZOLE 500 MG in APPROPRIATE DILUENT 1 EA IV SCH ×2 (13:17→20:26)
[2018-10-10] MEDS: KCL 40MEQ in NS 1000ML 1,000 ML IV SCH (13:18)
[2018-10-10] MEDS ORDERED: CIPROFLOXACIN 400 MG in APPROPRIATE DILUENT 1 EA IV SCH (14:00)
[2018-10-10 14:37] LABS: BLOOD UREA NITROGEN 16 MG/DL (7-18); CARBON DIOXIDE LEVEL 25 MEQ/L (21-32); CHLORIDE LEVEL 107 MEQ/L (98-107); CREATININE FOR GFR 0.87 MG/DL (0.70-1.30); GLOMERULAR FILTRATION RATE > 60.0 (>42); GLUCOSE, FASTING 111 MG/DL (70-100); PHOSPHORUS LEVEL 2.6 MG/DL (2.5-4.9); POTASSIUM SERUM 3.4 MEQ/L (3.5-5.1); SODIUM LEVEL 141 MEQ/L (136-145)
[2018-10-10 16:00] VITALS: BP 118/62
[2018-10-10 20:20] VITALS: BP 119/60
[2018-10-10] MEDS: POTASSIUM CHLORIDE 10 MEQ SR TABLET PO SCH (20:26)
[2018-10-10 23:59] VITALS: BP 99/55
[2018-10-11] VITALS (7 sets, daily range): BP systolic 113–127; BP diastolic 57–81
[2018-10-11] MEDS: KCL 10MEQ/100ML SWI (KRUN) 10 MEQ in APPROPRIATE DILUENT 1 EA IV SCH ×2 (01:10→02:16)
[2018-10-11 06:15] LABS: HEMATOCRIT 28.6 % (42.0-52.0); HEMOGLOBIN 9.4 g/dl (13.5-17.5); MEAN CORPUSCULAR HEMOGLOBIN 30.7 pg (27.0-33.0); MEAN CORPUSCULAR HGB CONC 32.9 g/dl (32.0-36.5); MEAN CORPUSCULAR VOLUME 93.5 fl (80.0-96.0); RED BLOOD COUNT 3.06 10^6/uL (4.30-6.10); WHITE BLOOD COUNT 27.7 10^3/uL (4.0-10.0)
[2018-10-11 06:51] LABS: ALBUMIN 1.9 GM/DL (3.2-5.2); ALT/SGPT 12 U/L (12-78); BILIRUBIN,TOTAL 0.5 MG/DL (0.2-1.0); BLOOD UREA NITROGEN 14 MG/DL (7-18); CALCIUM LEVEL 7.4 MG/DL (8.8-10.2); CARBON DIOXIDE LEVEL 23 MEQ/L (21-32); CHLORIDE LEVEL 109 MEQ/L (98-107); CREATININE FOR GFR 0.75 MG/DL (0.70-1.30); GLOMERULAR FILTRATION RATE > 60.0 (>42); GLUCOSE, FASTING 89 MG/DL (70-100); POTASSIUM SERUM 4.1 MEQ/L (3.5-5.1); SODIUM LEVEL 140 MEQ/L (136-145); TOTAL PROTEIN 3.6 GM/DL (6.4-8.2)
[2018-10-11 06:57] LABS: PLATELET COUNT, AUTOMATED 84 10^3/uL (150-450)
[2018-10-11] MEDS: TIOTROPIUM INHALER/CAPSULE (SPIRIVA) INH SCH (07:23)
[2018-10-11] MEDS: ADVAIR HFA 115/21MCG INHALER INH SCH ×2 (07:23→20:06)
[2018-10-11] MEDS: KCL 40MEQ in NS 1000ML 1,000 ML IV SCH (07:30)
--- NOTE | 2018-10-11 08:12 | IPNPDOC ---
Subjective Date Seen The patient was seen on 10/11/18. Subjective Chief Complaint/HPI Patient lying in bed comfortably as I entered the room. Patient reports diarrhea to be easing, however, he is still having loose stools and states he is having accidents in his briefs Constitutional: Denies: Chills, Fever Pulmonary: Denies: Dyspnea, Cough, Pleuritic Chest Pain Cardiovascular: Denies: Chest Pain, Palpitations, Orthopnea, Edema Gastrointestinal: Reports: Diarrhea; Denies: Nausea, Vomiting, Abdominal Pain, Hematochezia Psych: Reports: Mood Normal Objective Physical Examination General Exam: Positive: Alert, Cooperative, No Acute Distress Eye Exam: Positive: Conjunctiva & lids normal, EOMI ENT Exam: Positive: Atraumatic, Pharynx Normal, Other ENT Neck Exam: Positive: Supple Chest Exam: Positive: Clear to auscultation, Normal air movement Heart Exam: Positive: Tachycardic, Regular Rhythm, Normal S1, Normal S2 Telemetry: Positive: No significant arrhythmia Abdomen Exam: Positive: Normal bowel sounds, BS Hyperactive, Soft; Negative: Tenderness Extremity Exam: Positive: Normal pulses Skin Exam: Negative: Breakdown, Lesion Psych Exam: Positive: Mental status NL, Memory Intact Assessment /Plan Problems (1) Diarrhea Status: Acute Problem Text: 10/11/18: Persist, but easing. We will continue to provide hydration and monitor electrolytes. Mag this morning 1.6. We will replaced with Mag run and recheck levels this afternoon He has had diarrhea after each of his chemotherapy treatments. He reports that it typically lasts about 5 days. He is now about 9 days out from his last chemotherapy which makes this episode unusual. GI panel pending. Etiology infectious vs chemo related. Procalcitonin pending. Patient is being covered with Cipro and Flagyl . WBC 24.5, recently received Neupogen (2) Hypotension Status: Acute Response to Treatment: Stable Problem Text: 10/11/18: Pressures continue to remain stable. Antihypertensives remains on hold. We will continue to monitor Pressures stable this morning, 120/50. Losartan/HCTZ and Carvidilol on hold (3) Hypokalemia Status: Acute Response to Treatment: Stable Problem Text: 10/11/18: K+ 4.1 this morning. We will continue to monitor K+ 2.8 this morning. K+ runs x 3 administered this morning. We will repeat K+ level 12 am (renal panel was ordered). (4) Deep vein thrombosis (DVT) of femoral vein of right lower extremity Status: Acute Response to Treatment: Stable Problem Text: Patient will remain on his Eliquis (5) COPD (chronic obstructive pulmonary disease) Status: Chronic Response to Treatment: Stable Problem Text: Remains on his home inhalers (6) Malignant neoplasm of prostate Status: Chronic Problem Text: Last chemotherapy was on 10/02/18. He has reportedly had at least 5 days of diarrhea after each of his chemotherapy regimens. He follows with oncology and urology outpatient Plan/VTE VTE Prophylaxis Ordered?: Yes (Eliquis ) Plan Family Medicine Attending Note: I saw and examined Mr. Walters, discussed with Jose Coley DNP. Agree with her note as documented. He reports that the diarrhea has resolved by the afternoon. He is very interested in going home. I explained to him that his electrolytes have been abnormal each morning. I'd like him to stay overnight and recheck him tomorrow. Assuming that the electrolytes remained normal because he is no longer having diarrhea, I think he can be discharged tomorrow. We will need to clarify occupational therapy's recommendations; they c urrently have him listed as unsafe for home. Perhaps he may benefit from home OT; possibly his discharge will need to be delayed for this therapy. We'll try to clarify early tomorrow morning. 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, I&O, 24H, Fishbone Vital Signs/I&O Vital Signs Date Time Temp Pulse Resp B/P (MAP) Pulse Ox O2 Delivery O2 Flow Rate FiO2 10/11/18 07:39 98.4 84 18 113/62 (79) 93 10/09/18 20:15 Room Air I&O- Last 24 Hours up to 6 AM 10/11/18 06:00 Intake Total 2440 ml Output Total 925 ml Balance 1515 ml Laboratory Data 24H LABS Laboratory Tests 2 10/10/18 13:25: Blood Urea Nitrogen 16, Creatinine 0.87, Sodium Level 141, Potassium Level 3.4#L, Chloride Level 107, Carbon Dioxide Level 25, Anion Gap 9, Glomerular Filtration Rate > 60.0, Calcium Level 7.0L, Phosphorus Level 2.6, Magnesium Level 2.0, Albumin 2.0L 10/11/18 05:56: Blood Urea Nitrogen 14, Creatinine 0.75, Sodium Level 140, Potassium Level 4.1#, Chloride Level 109H, Carbon Dioxide Level 23, Anion Gap 8, Glomerular Filtration Rate > 60.0, Calcium Level 7.4L, Magnesium Level 1.6L, Albumin 1.9L, Nucleated Red Blood Cells % (auto) 0.6H, Immature Platelet Fraction 2.3, Aspartate Amino Transf (AST/SGOT) 29, Alanine Aminotransferase (ALT/SGPT) 12, Alkaline Phosph atase 170H, Total Bilirubin 0.5, Total Protein 3.6L, Albumin/Globulin Ratio 1.12 CBC/BMP Laboratory Tests 10/10/18 13:25 Anion Gap 9 10/11/18 05:56 Red Blood Count 3.06 L, Mean Corpuscular Volume 93.5, Mean Corpuscular Hemoglobin 30.7, Mean Corpuscular Hemoglobin Concent 32.9, Red Cell Distribution Width 17.2 H, Calcium Level 7.4 L, Aspartate Amino Transf (AST/SGOT) 29, Alanine Aminotransferase (ALT/SGPT) 12, Alkaline Phosphatase 170 H, Total Bilirubin 0.5, Total Protein 3.6 L, Albumin 1.9 L Microbiology Microbiology 10/09/18 Blood Culture - Preliminary, Resulted No growth after 24 hours . All specim... 10/09/18 Blood Culture - Preliminary, Resulted No growth after 24 hours . All specim... 10/10/18 Gastrointestinal Tract Panel (PCR) - Final, Complete JOSE COLEY Oct 11, 2018 08:12 Joni Fraser MD Oct 11, 2018 23:28
[2018-10-11] MEDS: APIXABAN 5 MG TAB (ELIQUIS) PO SCH ×2 (08:59→20:36)
[2018-10-11] MEDS: POTASSIUM CHLORIDE 10 MEQ SR TABLET PO SCH ×2 (09:00→20:36)
[2018-10-11] MEDS: MAG SULF 1GM/100ML (MAG RUN) 1 GM in APPROPRIATE DILUENT 1 EA IV SCH ×2 (09:01→10:37)
[2018-10-12] MEDS: KCL 40MEQ in NS 1000ML 1,000 ML IV SCH ×2 (00:03→02:04)
[2018-10-12 04:00] VITALS: BP 122/67
[2018-10-12 04:51] LABS: HEMATOCRIT 32.8 % (42.0-52.0); HEMOGLOBIN 10.5 g/dl (13.5-17.5); MEAN CORPUSCULAR HEMOGLOBIN 30.1 pg (27.0-33.0); RED BLOOD COUNT 3.49 10^6/uL (4.30-6.10)
[2018-10-12 05:10] LABS: PLATELET COUNT, AUTOMATED 93 10^3/uL (150-450)
[2018-10-12 05:12] LABS: WHITE BLOOD COUNT 32.9 10^3/uL (4.0-10.0)
[2018-10-12 05:28] LABS: ALT/SGPT 11 U/L (12-78); BILIRUBIN,TOTAL 0.5 MG/DL (0.2-1.0); BLOOD UREA NITROGEN 13 MG/DL (7-18); CALCIUM LEVEL 7.5 MG/DL (8.8-10.2); CARBON DIOXIDE LEVEL 21 MEQ/L (21-32); CHLORIDE LEVEL 113 MEQ/L (98-107); CREATININE FOR GFR 0.92 MG/DL (0.70-1.30); GLOMERULAR FILTRATION RATE > 60.0 (>42); GLUCOSE, FASTING 103 MG/DL (70-100); MAGNESIUM LEVEL 1.7 MG/DL (1.8-2.4); POTASSIUM SERUM 5.5 MEQ/L (3.5-5.1); SODIUM LEVEL 143 MEQ/L (136-145); TOTAL PROTEIN 4.1 GM/DL (6.4-8.2)
[2018-10-12] MEDS ORDERED: NS 1,000 ML IV SCH (06:00)
[2018-10-12] MEDS ORDERED: LOPE2CA PO (07:14)
[2018-10-12] MEDS: ADVAIR HFA 115/21MCG INHALER INH SCH (07:26)
[2018-10-12] MEDS: TIOTROPIUM INHALER/CAPSULE (SPIRIVA) INH SCH (07:26)
[2018-10-12 07:53] VITALS: BP 134/64
[2018-10-12] MEDS: APIXABAN 5 MG TAB (ELIQUIS) PO SCH (08:41)
[2018-10-12] MEDS ORDERED: MAGN400T PO (08:49)
--- NOTE | 2018-10-12 16:24 | DS.PDOC ---
Discharge Summary General Date of Admission Oct 09, 2018 at 18:38 Date of Discharge 10/12/18 Primary Care Physician: JOSE ELIAS MTZ PA-C Attending Physician: Joni Fraser MD Discharge Summary PROCEDURES PERFORMED DURING STAY:None ADMITTING DIAGNOSES: 1. Diarrhea 2. Dehydration 3. Hypotension 3. Hypokalemia 4. Hypomagnesemia 5. Leukocytosis 6. Anemia 7. Deep vein thrombosis (DVT) of femoral vein of right lower extremity 8. COPD (chronic obstructive pulmonary disease) 9. Malignant neoplasm of prostate COMPLICATIONS/CHIEF COMPLAINT: Hypokalemia; Hypotension. HISTORY OF PRESENT ILLNESS: 73 year old male with PMH of Metastatic prostate ca diagnosed in 2018 on chemotherapy, HYPERTENSION, COPD, DVT on eliquis, shingles, last chemotherapy was on 10/02/18 with last neupogen at that time. He presented to the ED with 5 days of severe watery diarrhea. He had gone to the oncology clinic for follow up and blood tests and was found to be hypotensive and hypokalemic, anemic and was sent to the ED for further eval. He complained of severe intractable diarrhea watery in nature for the past 5 days, no blood in it. He did not have any associated abdominal pain or cramps. no vomiting. He has been unable to eat or drink much for the past week. He did continue to take all his meds including his blood pressure meds which he took this morning. This am he was very light headed and dizzy and had difficulty in walking. Denied any fever or chills. He did have a fall about 2 weeks ago and had hit his head. So he had a CT head done in the ED which was negative for any acute events. He has been taking about 6 Imodium pills daily but still continued to have diarrhea. He says he did have diarrhea after every chemo treatment but that would get better in 2 to 3 days . This cycle was his last treatment. He was admitted for diarrhea, dehydration, hypotension, electrolyte imbalance, anemia. HOSPITAL COURSE: 1. Diarrhea: Patient was treated initially for infectious etiology with Cipro and Flagyl. His GI panel was negtive and Procalcitonin level was 0.21. Abx were discontinued and he was treated with Immodium and supportive measures. His diarrhea resolved and he was discharged on day 3 of his admission. 2. Dehydration: Rehydrated with IVF and good oral intake 3. Hypotension: His antihypertensives were held. His pressures remained stable. Losartan/HCTZ remained on hold until his f/u appt with PCP. His Carvedilol was resumed. 4. Hypokalemia: Patient received several K+ runs to correct his levels. On day of discharge his K+ 5.5. This was related to over supplementation 5. Hypomagnesemia: Patient received several Mag runs. He was discharged on oral magnesium 400 mg po daily 6. Leukocytosis: This was believed to be secondary to his Neupogen. He remained afebrile, procalcitonin 0.21 7. Anemia: Patient received 3 units of PRBC in the ER. Hgb remained stable 8. Deep vein thrombosis (DVT) of femoral vein of right lower extremity: Patient remained on his Eliquis 9. COPD (chronic obstructive pulmonary disease): Remained on his home inhalers 10. Malignant neoplasm of prostate: Completed his last chemotherapy on 10/02/18 DISCHARGE MEDICATIONS: Please see below. ALLERGIES: Please see below. PHYSICAL EXAMINATION ON DISCHARGE: VITAL SIGNS: Please see below. GENERAL: AOx3 HEENT: unremarkable NECK: soft, supple CARDIOVASCULAR EXAMINATION: RRR RESPIRATORY EXAMINATION: CTA ABDOMINAL EXAMINATION: soft, non-tender, non-distended EXTREMITIES: trace edema noted R>L SKIN: warm, dry NEUROLOGICAL EXAMINATION: Intact, no deficits LABORATORY DATA: Please see below. IMAGING: CT Head without contrast 10/09/18: Areas of decreased attenuation are present in the periventricular white matter. This represents small-vessel ischemic disease. There is no intraparenchymal hemorrhage, acute infarct, mass or midline shift. The ventricular system and cortical sulci are dilated consistent with minimal volume loss. There is no extra cerebral collection. There is no fracture. 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 Mucosal thickening is present in the ethmoid and maxillary sinuses. IMPRESSION: 1. Small vessel ischemic disease. 2. Minimal volume loss. PROGNOSIS: Good ACTIVITY: As tolerated. DIET: Regular DISCHARGE PLAN: To home DISCHARGE INSTRUCTIONS: 1. F/U with PCP in one week 2. Repeat labs on Monday DISCHARGE CONDITION: Stable. Vital Signs/I&Os Vital Signs Date Time Temp Pulse Resp B/P (MAP) Pulse Ox O2 Delivery O2 Flow Rate FiO2 10/12/18 04:00 96.8 109 16 122/67 (85) 93 10/09/18 20:15 Room Air I&O- Last 24 Hours up to 6 AM 10/12/18 06:00 Intake Total 2290 ml Output Total 600 ml Balance 1690 ml Laboratory Data Labs 24H Laboratory Tests 2 10/11/18 12:02: Magnesium Level 2.2 10/12/18 04:33: Magnesium Level 1.7L, Nucleated Red Blood Cells % (auto) 0.5H, Anion Gap 9, Glomerular Filtration Rate > 60.0, Blood Urea Nitrogen 13, Creatinine 0.92, Sodium Level 143, Potassium Level 5.5H, Chloride Level 113H, Carbon Dioxide Level 21, Calcium Level 7.5L, Aspartate Amino Transf (AST/SGOT) 36, Alanine Aminotransferase (ALT/SGPT) 11L, Alkaline Phosphatase 201H, Total Bilirubin 0.5, Total Protein 4.1L, Albumin 2.0L, Albumin/Globulin Ratio 0.95L CBC/BMP Laboratory Tests 10/12/18 04:33 Red Blood Count 3.49 L, Mean Corpuscular Volume 94.0, Mean Corpuscular Hemoglobin 30.1, Mean Corpuscular Hemoglobin Concent 32.0, Red Cell Distribution Width 17.7 H, Calcium Level 7.5 L, Aspartate Amino Transf (AST/SGOT) 36, Alanine Aminotransferase (ALT/SGPT) 11 L, Alkaline Phosphatase 201 H, Total Bilirubin 0.5, Total Protein 4.1 L, Albumin 2.0 L Microbiology Microbiology 10/09/18 Blood Culture - Preliminary, Resulted No Growth after 48 hours. All Specime... 10/09/18 Blood Culture - Preliminary, Resulted No Growth after 48 hours. All Specime... 10/10/18 Gastrointestinal Tract Panel (PCR) - Final, Complete Discharge Medications Scheduled Apixaban (Eliquis) 5 Mg Tablet, 5 MG PO BID, (Reported) Carvedilol (Carvedilol) 6.25 Mg Tab, 6.25 MG PO BID, (Reported) Losartan/Hydrochlorothiazide (Losartan-Hctz 50-12.5 mg Tab) 1 Tab Tab, 1 TAB PO DAILY Magnesium Oxide (Magnesium Oxide) 400 Mg Tablet, 400 MG PO DAILY for constip ation Potassium Chloride (Potassium Chloride) 10 Meq Tablet.er, 10 MEQ PO DAILY, (Reported) Salmeterol/Fluticasone (Advair 250-50 Diskus) 14 Puff/Inhaler Aerp, 1 PUFF INH BID Tiotropium Wayne Monohydrate (Spiriva) 18 Mcg Cap.w.dev, 1 CAP INH DAILY, (Reported) Scheduled PRN Hydrocodone/Acetaminophen (Juliette 5-325 Tablet) 1 Each Tablet, 1 TAB PO TID PRN for PAIN, (Reported) Loperamide HCl (Loperamide) 2 Mg Capsule, 2 MG PO ASDIRECTED PRN for DIARRHEA Allergies Coded Allergies: No Known Allergies (Unverified , 04/09/18) JOSE COLEYP Oct 12, 2018 07:14
== END 2018-10-12 10:50 | disposition home or self-care (01) | DRG 392 ==
LOC: M ED 14:53 → M ED INP 18:38 → M PCU 20:31
PROVIDERS: ADMIT Internal Medicine Nephrology; ATTEND Family Medicine
PROC: 30233N1 Transfusion of Nonautologous Red Blood Cells into Peripheral Vein, Percutaneous Approach (ICD-10-PCS; principal; 2018-10-09)
DX: R19.7 Diarrhea, unspecified (principal); C79.51 Secondary malignant neoplasm of bone; I10 Essential (primary) hypertension; J44.9 Chronic obstructive pulmonary disease, unspecified; C61 Malignant neoplasm of prostate; E87.6 Hypokalemia; I95.9 Hypotension, unspecified; D64.9 Anemia, unspecified; E86.0 Dehydration; E83.42 Hypomagnesemia; D72.829 Elevated white blood cell count, unspecified; T45.1X5A Adverse effect of antineoplastic and immunosuppressive drugs, initial encounter; Z86.718 Personal history of other venous thrombosis and embolism; Z79.01 Long term (current) use of anticoagulants; Z79.899 Other long term (current) drug therapy; Z90.49 Acquired absence of other specified parts of digestive tract; Z87.891 Personal history of nicotine dependence

== ENCOUNTER → 2018-10-16 | Outpatient (REF) | payer MEDICARE ==
[~2018-10-16] MED LIST changes: +LOPE2CA PO; +MAGN400T PO; +NORC1TAB7 PO; +POTA10TA14 PO
[2018-10-16 17:07] LABS: CALCIUM LEVEL 7.4 MG/DL (8.8-10.2); CREATININE FOR GFR 1.29 MG/DL (0.70-1.30); GLOMERULAR FILTRATION RATE 58.1 (>42); MAGNESIUM LEVEL 1.6 MG/DL (1.8-2.4)
[2018-10-16 18:07] LABS: HEMATOCRIT 32.5 % (42.0-52.0); HEMOGLOBIN 10.3 g/dl (13.5-17.5); MEAN CORPUSCULAR HEMOGLOBIN 30.3 pg (27.0-33.0); MEAN CORPUSCULAR HGB CONC 31.7 g/dl (32.0-36.5); MEAN CORPUSCULAR VOLUME 95.6 fl (80.0-96.0); PLATELET COUNT, AUTOMATED 101 10^3/uL (150-450); WHITE BLOOD COUNT 13.8 10^3/uL (4.0-10.0)
[2018-10-16 18:25] LABS: LYMPHOCYTES 3 % (16-52); MONOCYTES 4 % (0-8); NEUTROPHILS 88 % (35-75)
[2018-10-16 18:26] LABS: ANISOCYTOSIS 1+; PLATELET ESTIMATE DECREASED (NORMAL); TEAR DROP CELLS 1+
[2018-10-16 18:27] LABS: PLATELET CLUMPS SMALL AMT
== END ==
LOC: M SFHCPLAZ 07:13
PROVIDERS: ATTEND Nurse Practitioner Family
DX: E87.6 Hypokalemia (principal); E83.42 Hypomagnesemia

== ENCOUNTER → 2018-10-19 | Outpatient (REF) | payer MEDICARE | LOC: M SFHCPLAZ 09:45 | PROVIDERS: ATTEND Physician Assistant | DX: I10 Essential (primary) hypertension (principal); E83.42 Hypomagnesemia ==